=== PATIENT | male | born 1985 | race Two or more races ===

== ENCOUNTER 2020-07-25 16:11 | Emergency (ER) | payer SELFPAY ==
[~2020-07-25] VITALS: Ht 167.6 cm; Wt 72.7 kg
[2020-07-25] MEDS ORDERED: CefTRIAXone SODIUM 1 GM/VIAL IM ONE (17:15)
[2020-07-25] MEDS ORDERED: LIDOCAINE/PF 1% 2 ML VIAL IM ONE ×2 (17:15)
[2020-07-25] MEDS ORDERED: AZITHROMYCIN 500 MG TABLET PO ONE (17:15)
[2020-07-25 17:30] VITALS: BP 135/78
[2020-07-25 18:45] LABS: APPEARANCE,URINE CLOUDY (CLEAR); BILIRUBIN,URINE NEGATIVE (NEGATIVE); GLUCOSE, URINE (UA) NEGATIVE (NEGATIVE); KETONES,URINE NEGATIVE (NEGATIVE); LEUKOCYTE ESTERASE ,URINE MODERATE (NEGATIVE); NITRATE,URINE NEGATIVE (NEGATIVE); OCCULT BLOOD,URINE NEGATIVE (NEGATIVE); PROTEIN,URINE NEGATIVE (NEGATIVE)
[2020-07-25 18:51] LABS: RBC,URINE 0-2 /HPF (0-2); WBC,URINE 51-100 /HPF (0-5)
[2020-07-25 18:52] LABS: BACTERIA,URINE Few /HPF (None Seen); SQUAMOUS EPITHELIAL CELL,UR Rare /LPF (None Seen)
[2020-07-25 18:53] LABS: CALCIUM OXALATE CRYSTALS,UR Few /LPF (None Seen)
== END 2020-07-25 19:05 | disposition home or self-care (01) ==
LOC: EMS 16:17
DX: N34.2 Other urethritis (principal)
CPT/HCPCS: 81001; 87086; 87491; 87591; 96372; 99283; J0696; J3490